=== PATIENT | male | born 1950 | race Caucasian/White ===

== ENCOUNTER 2018-01-09 21:24 | Emergency (ER) | payer OTHER ==
[~2018-01-09] VITALS: Ht 175.3 cm; Wt 96.6 kg
[2018-01-09 21:57] LABS: URINE BILIRUBIN NEGATIVE (Negative); URINE BLOOD TRACE (Negative); URINE CLARITY CLEAR; URINE COLOR YELLOW; URINE GLUCOSE-RANDOM* 2+ (Negative); URINE KETONES NEGATIVE (Negative); URINE LEUKOCYTES-REFLEX NEGATIVE (Negative); URINE NITRITE-REFLEX NEGATIVE (Negative); URINE PROTEIN (DIPSTICK) 2+ (Negative); URINE SPECIFIC GRAVITY 1.015 (1.005-1.035); URINE UROBILINOGEN 0.2 E.U./dl (0.2-1.0)
[2018-01-09 22:10] LABS: SQUAMOUS >10 Many /LPF (0-3)
[2018-01-09 22:11] LABS: CASTS None Seen /LPF (None Seen); CRYSTALS None Seen /LPF (None Seen); URINE RBC 0-2 Rare /HPF (0-2); URINE WBC-REFLEX 0-5 Rare /HPF (0-5)
[2018-01-09 22:12] LABS: BACTERIA-REFLEX None Seen /HPF (None Seen)
[2018-01-09] MEDS ORDERED: OXYCONTIN20 M1 PO (22:33)
[2018-01-09] MEDS ORDERED: NORCO 5-325 TA1 EAC1 PO (22:34)
[2018-01-09] MEDS ORDERED: TOPAMAX 25 MG T25 M1 PO (22:39)
[2018-01-09] MEDS ORDERED: ASPIRIN325 PO (22:39)
[2018-01-09] MEDS ORDERED: AMARYL4 MG PO (22:39)
[2018-01-09] MEDS ORDERED: CYMBALTA60 MG PO (22:40)
[2018-01-09] MEDS ORDERED: WELLBUTRIN XL300 MG PO (22:40)
[2018-01-09] MEDS ORDERED: NOVOLOG100 UNIT/1 SUBQ (22:40)
[2018-01-09] MEDS ORDERED: MIRAPEX0.5 MG PO (22:41)
[2018-01-09] MEDS ORDERED: MYSOLINE50 MG PO (22:41)
[2018-01-09] MEDS ORDERED: CRESTOR20 MG PO (22:42)
[2018-01-09] MEDS ORDERED: PRORENAL VITAL1 EACH PO (22:42)
[2018-01-09] MEDS ORDERED: LOPRESSOR25 PO (22:42)
[2018-01-09] MEDS ORDERED: ROCALTROL0.25 MCG PO (22:43)
[2018-01-09] MEDS ORDERED: MIRALAX17 GM PO (22:44)
[2018-01-09] MEDS ORDERED: ELIPHOS667 MG PO (22:44)
[2018-01-09] MEDS ORDERED: OMEPRAZOLE 20 M20 M1 PO (22:44)
[2018-01-09 22:53] LABS: HEMATOCRIT 27.9 % (42.0-52.0); HEMOGLOBIN 9.6 gm/dL (14.0-18.0); MCH 34.9 pg (26.0-34.0); MCHC 34.4 g/dL (28.0-37.0); MCV 101.7 fL (80.0-100.0); RBC 2.75 mil/uL (4.50-6.00); WBC 5.2 thou/uL (4.0-11.0)
[2018-01-09 23:00] LABS: CALCIUM 8.8 mg/dL (8.5-10.1); CREATININE 7.2 mg/dL (0.7-1.3); POTASSIUM 5.1 mmol/L (3.5-5.1)
[2018-01-09 23:07] LABS: ALBUMIN 3.1 g/dL (3.4-5.0); TOTAL BILIRUBIN 0.3 mg/dL (<0.1-1.0); TOTAL PROTEIN 6.2 g/dL (6.4-8.2)
[2018-01-09] MEDS ORDERED: OXYCODONE HCL 55 MG PO (23:48)
[2018-01-10 00:07] VITALS: BP 161/67
== END 2018-01-10 00:07 | disposition home or self-care (01) ==
LOC: ER 21:24
PROVIDERS: Emergency Medicine
DX: E11.22 Type 2 diabetes mellitus with diabetic chronic kidney disease (principal); N18.6 End stage renal disease; R10.9 Unspecified abdominal pain; Z99.2 Dependence on renal dialysis; Z79.4 Long term (current) use of insulin; Z95.5 Presence of coronary angioplasty implant and graft; Z87.891 Personal history of nicotine dependence

== ENCOUNTER → 2019-10-10 | Outpatient (CLI) | payer OTHER ==
[~2019-10-10] MED LIST: AMARYL4 MG PO; ASPIRIN325 PO; CRESTOR20 MG PO; CYMBALTA60 MG PO; ELIPHOS667 MG PO; LOPRESSOR25 PO; MIRALAX17 GM PO; MIRAPEX0.5 MG PO; MYSOLINE50 MG PO; NORCO 5-325 TA1 EAC1 PO; NOVOLOG100 UNIT/1 SUBQ; OMEPRAZOLE 20 M20 M1 PO; OXYCODONE HCL 55 MG PO; OXYCONTIN20 M1 PO; PRORENAL VITAL1 EACH PO; ROCALTROL0.25 MCG PO; TOPAMAX 25 MG T25 M1 PO; WELLBUTRIN XL300 MG PO
== END ==
LOC: HYPER 07:28
DX: S30.810A Abrasion of lower back and pelvis, initial encounter (principal); S31.829A Unspecified open wound of left buttock, initial encounter; S31.819A Unspecified open wound of right buttock, initial encounter; E11.22 Type 2 diabetes mellitus with diabetic chronic kidney disease; I12.0 Hypertensive chronic kidney disease with stage 5 chronic kidney disease or end stage renal disease; N18.6 End stage renal disease; E11.319 Type 2 diabetes mellitus with unspecified diabetic retinopathy without macular edema; E11.42 Type 2 diabetes mellitus with diabetic polyneuropathy; G47.30 Sleep apnea, unspecified; N30.01 Acute cystitis with hematuria; I25.10 Atherosclerotic heart disease of native coronary artery without angina pectoris; K21.9 Gastro-esophageal reflux disease without esophagitis; F17.290 Nicotine dependence, other tobacco product, uncomplicated; F32.9 Major depressive disorder, single episode, unspecified; F41.9 Anxiety disorder, unspecified; Z95.5 Presence of coronary angioplasty implant and graft; Z85.46 Personal history of malignant neoplasm of prostate; Z85.51 Personal history of malignant neoplasm of bladder; Z86.73 Personal history of transient ischemic attack (TIA), and cerebral infarction without residual deficits; Z99.2 Dependence on renal dialysis; Z79.4 Long term (current) use of insulin; Z98.49 Cataract extraction status, unspecified eye; Z79.82 Long term (current) use of aspirin; W19.XXXA Unspecified fall, initial encounter; Y93.89 Activity, other specified; Y92.89 Other specified places as the place of occurrence of the external cause; Y99.8 Other external cause status